=== PATIENT | male | born 1985 | race Caucasian/White ===

== ENCOUNTER 2022-01-11 19:47 | Emergency (ER) | payer OTHER, BC ==
[2022-01-11] MEDS ORDERED: Ketorolac 30 MG/ML SDV IM ONE (20:10)
[2022-01-11] MEDS ORDERED: oxyCODONE 5 MG Tab PO ONE (20:10)
[2022-01-11] MEDS ORDERED: Ketorolac 30 MG/ML SDV IVPUSH ONE (20:16)
[2022-01-11] MEDS ORDERED: Bacitracin Oint 1 GM U/D Packet TOP ONE (20:18)
== END 2022-01-11 21:00 | disposition home or self-care (01) ==
LOC: JP.ED 19:47
DX: S43.101A Unspecified dislocation of right acromioclavicular joint, initial encounter (principal); S30.0XXA Contusion of lower back and pelvis, initial encounter; S20.411A Abrasion of right back wall of thorax, initial encounter; V86.56XA Driver of dirt bike or motor/cross bike injured in nontraffic accident, initial encounter; Y92.410 Unspecified street and highway as the place of occurrence of the external cause
CPT/HCPCS: 73030; 96374; 99283; A9270; J1885